=== PATIENT | female | born 1960 | race Caucasian/White ===

== ENCOUNTER 2016-11-15 18:28 | Emergency (ER) | payer BC ==
[2016-11-15 18:54] VITALS: BP 175/93
[2016-11-15] MEDS ORDERED: Lidocaine 2% 10 ML* VIAL INJ ONE (19:35)
--- NOTE | 2016-11-15 19:35 | UC ---
Laceration HPI - HPI Summary HPI Summary: 56 yo female scratched on face by boxer about 2 hours ago Td up to date mild pain no DM - History Of Current Complaint Chief Complaint: UCLaceration Stated Complaint: DOG SCRATCH ON FACE Time Seen by Provider: 11/15/16 19:28 Hx Obtained From: Patient Laceration Location: Face Mechanism Of Injury: Sharp Trauma Onset/Duration: Sudden Onset Severity: Mild Pain Intensity: 3 Pain Scale Used: 0-10 Numeric - Allergies/Home Medications Allergies/Adverse Reactions: Allergies Allergy/AdvReac Type Severity Reaction Status Date / Time Ibuprofen Allergy Severe Altered Verified 11/15/16 18:47 Mental Status Penicillins Allergy Severe Rash Verified 11/15/16 18:47 Sulfa Drugs Allergy Severe Rash Verified 11/15/16 18:47 Home Medications: Home Medications Chlorthalidone 11/15/16 [History] PMH/Surg Hx/FS Hx/Imm Hx Previously Healthy: Yes Endocrine History Of: Reports: Thyroid Disease Denies: Diabetes Cardiovascular History Of: Reports: Hypertension Denies: Cardiac Disorders Respiratory History Of: Denies: COPD, Asthma GI/ History Of: Denies: Ulcer Cancer History Of: Denies: Breast Cancer - Surgical History Surgical History: Yes Surgery Procedure, Year, and Place: tonsils; ganglion cyst; D&C - Family History Known Family History: Positive: Hypertension, Other - Prostate CA (father) - Social History Alcohol Use: None Substance Use Type: None Smoking Status (MU): Never Smoked Tobacco Review of Systems Constitutional: Negative Skin: Negative Eyes: Negative ENT: Negative Respiratory: Negative Cardiovascular: Negative Gastrointestinal: Negative Genitourinary: Negative Motor: Negative Neurovascular: Negative Musculoskeletal: Negative Neurological: Negative Psychological: Negative All Other Systems Reviewed And Are Negative: Yes Physical Exam Triage Information Reviewed: Yes Appearance: Well-Appearing, No Pain Distress, Well-Nourished Vital Signs: Initial Vital Signs Temp 99.4 F 11/15/16 18:48 Pulse 91 11/15/16 18:48 Resp 16 11/15/16 18:48 BP 175/93 11/15/16 18:48 Pulse Ox 96 11/15/16 18:48 Eyes: Positive: Conjunctiva Clear ENT: Positive: Hearing grossly normal. Negative: Nasal congestion, Nasal drainage, Trismus, Muffled/hoarse voice Neck: Positive: Supple Respiratory: Positive: Lungs clear, Normal breath sounds, No respiratory distress, No accessory muscle use Cardiovascular: Positive: RRR, No Murmur Musculoskeletal: Positive: ROM Intact, No Edema Neurological: Positive: Alert Psychological Exam: Normal Skin Exam: Other - see image Laceration Repair - Laceration Repair 1 Description: Linear Laceration Size After Repair: Length (cm) - .4, Width (mm) - 2, Depth (mm) - 2 Modified For Repair: No Type Injection: Local Anesthesia Used: 1.0% Lido Cleansing Completed Via Routine Prep: Yes Irrigation With Pressure Irrigation Device: Yes Closure Material: Sutures - 3 6-0 nylon Closure Method: Single Layer Laceration Course/Dx - Differential Dx - Laceration/Wound Provider Diagnoses: facial scratch/laceration face/upper lip Discharge - Discharge Plan Condition: Stable Disposition: HOME Prescriptions: DOXYcycline CAP(*) [DOXYcycline 100MG CAP(*)] 100 mg PO BID #6 cap Patient Education Materials: Facial Laceration (ED) Referrals: Matt Dodson MD [Primary Care Provider] - Additional Instructions: gently clean twice daily with soap and water apply a thin film of antibiotic ointment recheck for concerns of infection sutures out in 3-4 days Images Head: 1 - scratch turn to laceration at lip
[2016-11-15] MEDS ORDERED: Lidocaine 2% PF * 5 ML VIAL ONE (19:39)
== END 2016-11-15 20:15 | disposition home or self-care (01) ==
LOC: UCEAST 18:28
DX: S01.511A Laceration without foreign body of lip, initial encounter (principal); E07.9 Disorder of thyroid, unspecified; I10 Essential (primary) hypertension; S00.81XA Abrasion of other part of head, initial encounter; Z88.0 Allergy status to penicillin; Z88.2 Allergy status to sulfonamides; W54.8XXA Other contact with dog, initial encounter
CPT/HCPCS: 12013; 99212; G0463; J2001

== ENCOUNTER 2016-11-19 15:15 | Emergency (ER) | payer SELFPAY ==
--- NOTE | 2016-11-19 16:40 | UC ---
HPI Wound/Suture Re-check - HPI Summary HPI Summary: Has dog scratch to L upper lip 11/15/16. 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 Here for suture removal. - History Of Current Complaint Chief Complaint: UCSkin Stated Complaint: STITCHES REMOVAL Time Seen by Provider: 11/19/16 16:31 Hx Obtained From: Patient Onset/Duration: Sudden Onset Severity: Mild - Allergies/Home Medications Allergies/Adverse Reactions: Allergies Allergy/AdvReac Type Severity Reaction Status Date / Time Ibuprofen Allergy Severe Altered Verified 11/15/16 18:47 Mental Status Penicillins Allergy Severe Rash Verified 11/15/16 18:47 Sulfa Drugs Allergy Severe Rash Verified 11/15/16 18:47 PMH/Surg Hx/FS Hx/Imm Hx Endocrine History Of: Reports: Thyroid Disease Denies: Diabetes Cardiovascular History Of: Reports: Hypertension Denies: Cardiac Disorders Respiratory History Of: Denies: COPD, Asthma GI/ History Of: Denies: Ulcer Cancer History Of: Denies: Breast Cancer - Surgical History Surgical History: Yes Surgery Procedure, Year, and Place: tonsils; ganglion cyst; D&C - Family History Known Family History: Positive: None, Hypertension, Other - Prostate CA (father) - Social History Occupation: Employed Full-time Alcohol Use: Rare Substance Use Type: None Smoking Status (MU): Never Smoked Tobacco Review of Systems Constitutional: Negative Skin: Other - sutures to lip Eyes: Negative ENT: Negative Respiratory: Negative Cardiovascular: Negative Gastrointestinal: Negative Genitourinary: Negative Motor: Negative Neurovascular: Negative Musculoskeletal: Negative Neurological: Negative Psychological: Negative All Other Systems Reviewed And Are Negative: Yes Physical Exam Triage Information Reviewed: Yes Appearance: Well-Appearing, No Pain Distress, Well-Nourished Vital Signs: Initial Vital Signs Temp 97.8 F 11/19/16 16:32 Pulse 85 11/19/16 16:32 Resp 18 11/19/16 16:32 Pulse Ox 98 11/19/16 16:32 Vital Signs Reviewed: Yes Eye Exam: Normal Eyes: Positive: Conjunctiva Clear ENT Exam: Normal ENT: Positive: Normal ENT inspection, Hearing grossly normal, Pharynx normal, TMs normal Dental Exam: Normal Neck exam: Normal Neck: Positive: Supple, Nontender Respiratory Exam: Normal Respiratory: Positive: Chest non-tender, Lungs clear, Normal breath sounds, No respiratory distress, No accessory muscle use Cardiovascular Exam: Normal Cardiovascular: Positive: RRR, No Murmur Musculoskeletal Exam: Normal Neurological Exam: Normal Neurological: Positive: Alert Psychological Exam: Normal Skin Exam: Other - #3 sutures removed from L upper lip. Wound scabbed and well- approximated. Pt adilson well. Course/Dx - Differential Dx - Laceration/Wound Provider Diagnoses: Suture removal from face Discharge - Discharge Plan Condition: Stable Disposition: HOME Patient Education Materials: Stitches Removal (ED) Referrals: Matt Dodson MD [Primary Care Provider] - If Needed Additional Instructions: call or return if you have increasing swelling, redness, or drainage
[2016-11-19 16:41] VITALS: BP 166/80
== END 2016-11-19 16:35 | disposition home or self-care (01) ==
LOC: UCEAST 15:15
DX: S01.511D Laceration without foreign body of lip, subsequent encounter (principal); W54.8XXD Other contact with dog, subsequent encounter; Y92.89 Other specified places as the place of occurrence of the external cause; Y99.0 Civilian activity done for income or pay; E07.9 Disorder of thyroid, unspecified; I10 Essential (primary) hypertension; Z88.6 Allergy status to analgesic agent; Z88.0 Allergy status to penicillin; Z88.2 Allergy status to sulfonamides
CPT/HCPCS: 99211; G0463

== ENCOUNTER 2018-02-27 20:24 | Emergency (ER) | payer SELFPAY ==
[2018-02-27 20:45] VITALS: BP 169/84
[2018-02-27] MEDS ORDERED: Doxycycline (NF) 100 MG TAB PO ONE (21:46)
[2018-02-27] MEDS ORDERED: Clindamycin CAP* 150 MG PO ONE (21:47)
--- NOTE | 2018-02-27 21:47 | UC ---
Bite Injury/Animal HPI - HPI Summary HPI Summary: This patient is a 57 year old F presenting [place] [facility] [place] cat bite of the right index finger that occurred at her job today at 1815. She was wearing cat gloves so the bite is very minor. The patient rates the pain 2/10 in severity. Patient states that she rinsed it well. Pt states her tetanus is UTD and that the cat has all its shots. She is concerned for infections. . 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 Severity Currently: Mild Severity Initially: Mild Pain Intensity: 2 Pain Scale Used: 0-10 Numeric Onset/Duration: Sudden Onset, Still Present Type of Bite: Animal Has Animal Been Immunized?: Yes Character: Puncture Associated Signs And Symptoms: Negative: Fever, Swelling - Allergies/Home Medications Allergies/Adverse Reactions: Allergies Allergy/AdvReac Type Severity Reaction Status Date / Time MS Ibuprofen [Ibuprofen] Allergy Severe Altered Verified 11/19/16 16:40 Mental Status MS Penicillins [Penicillins] Allergy Severe Rash Verified 11/19/16 16:40 MS Sulfa Drugs [Sulfa Drugs] Allergy Severe Rash Verified 11/19/16 16:40 PMH/Surg Hx/FS Hx/Imm Hx Endocrine History: Thyroid Disease Cardiovascular History: Hypertension Other History Of: Negative For: Anticoagulant Therapy - Surgical History Surgical History: Yes Surgery Procedure, Year, and Place: tonsils; ganglion cyst; D&C - Family History Known Family History: Positive: Hypertension, Other - Prostate CA (father) Negative: Cardiac Disease, Renal Disease, Respiratory Disease, Seizure Disorder - Social History Occupation: Employed Full-time Alcohol Use: Rare Substance Use Type: None Smoking Status (MU): Never Smoked Tobacco - Immunization History Most Recent Tetanus Shot: 830724 Review of Systems Constitutional: Negative - fever Skin: Other - cat bite to the right index finger All Other Systems Reviewed And Are Negative: Yes Physical Exam Triage Information Reviewed: Yes Appearance: Well-Appearing, No Pain Distress Vital Signs: Initial Vital Signs Temp 98.4 F 02/27/18 20:39 Pulse 87 02/27/18 20:39 Resp 16 02/27/18 20:39 BP 169/84 02/27/18 20:39 Pulse Ox 98 02/27/18 20:39 Vital Signs Reviewed: Yes Eye Exam: Normal ENT Exam: Normal Respiratory: Positive: Lungs clear, Normal breath sounds Cardiovascular: Positive: RRR, No Murmur Abdomen Description: Negative: Distended Musculoskeletal: Positive: Strength Intact, ROM Intact, No Edema, Other: - right index finger with small punture wound on tip. No finger swelling or redness no tenderness on Flexion or extension of the finger. Psychological: Positive: Age Appropriate Behavior Skin: Positive: Other - puncture wound right index finger tip Bite Injury Course/Dx - Course Course Of Treatment: 57 yr old with cat bite superficial to finger tip. Cat shots up to date. She got TDAP a year ago. DC home. - Differential Dx/Diagnosis Provider Diagnoses: cat bite right indexfinger. hypertension Discharge - Sign-Out/Discharge Documenting (check all that apply): Patient Departure All imaging exams completed and their final reports reviewed: No Studies - Discharge Plan Condition: Good Disposition: HOME Prescriptions: Clindamycin Cap(NF) [Clindamycin Cap 300 mg Cap(NF)] 300 mg PO TID #14 cap DOXYcycline CAP(*) [DOXYcycline 100MG CAP(*)] 100 mg PO BID #10 cap Patient Education Materials: Animal Bite (ED), Hypertension (ED) Referrals: Matt Dodson MD [Primary Care Provider] - 2 Days - Billing Disposition and Condition Condition: GOOD Disposition: Home - Attestation Statements Document Initiated by Misty: Yes Documenting Scribe: Vamshi Moon Provider For Whom Misty is Documenting (Include Credential): Arie Cast MD Scribe Attestation: Vamshi Galloway scribed for Arie Cast MD on 02/27/18 at 2150. Scribe Documentation Reviewed: Yes Provider Attestation: The documentation as recorded by the Vamshi remy accurately reflects the service I personally performed and the decisions made by me, Arie Cast MD
[2018-02-27] MEDS ORDERED: DOXYcycline CAP(*) 100 MG PO ONE (21:54)
== END 2018-02-27 22:00 | disposition home or self-care (01) ==
LOC: UCEAST 20:24
DX: S61.250A Open bite of right index finger without damage to nail, initial encounter (principal); I10 Essential (primary) hypertension; Z88.0 Allergy status to penicillin; Z88.2 Allergy status to sulfonamides; Z88.6 Allergy status to analgesic agent; W55.01XA Bitten by cat, initial encounter; Y92.89 Other specified places as the place of occurrence of the external cause; Y99.0 Civilian activity done for income or pay
CPT/HCPCS: 99213; A9270-GY; G0463

== ENCOUNTER 2018-04-14 12:29 | Emergency (ER) | payer BC ==
[2018-04-14 12:42] VITALS: BP 193/86
--- NOTE | 2018-04-14 13:45 | UC ---
UC General HPI - HPI Summary HPI Summary: 57-year-old woman comes in today with a complaint of feeling shaky. The shaky started today. 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 No recent change in her levothyroxine dosing. No fevers or chills no chest pain no shortness of breath. She is perimenopausal and has been having increasing frequency of hot flashes recently. She questions the possibility of Lyme disease she has not seen a tick on her for several years. No rashes. She is on a diuretic and knows that that can affect your potassium levels. 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 Pain Intensity: 4 - Allergy/Home Medications Allergies/Adverse Reactions: Allergies Allergy/AdvReac Type Severity Reaction Status Date / Time ibuprofen Allergy Intermediate altered Verified 04/14/18 12:43 mental status Penicillins Allergy Intermediate Rash Verified 04/14/18 12:43 Sulfa (Sulfonamide Allergy Intermediate Rash Verified 04/14/18 12:43 Antibiotics) PMH/Surg Hx/FS Hx/Imm Hx Endocrine History: Thyroid Disease Other History Of: Negative For: Anticoagulant Therapy - Surgical History Surgical History: Yes Surgery Procedure, Year, and Place: tonsils; ganglion cyst; D&C - Family History Known Family History: Positive: Hypertension, Other - Prostate CA (father) Negative: Cardiac Disease, Renal Disease, Respiratory Disease, Seizure Disorder - Social History Alcohol Use: Occasionally Substance Use Type: None Smoking Status (MU): Never Smoked Tobacco - Immunization History Most Recent Tetanus Shot: 340555 Review of Systems Constitutional: Other - SHAKY, SEE HPI Skin: Negative Eyes: Negative ENT: Negative Respiratory: Negative Cardiovascular: Negative Gastrointestinal: Negative Genitourinary: Negative Motor: Negative Neurovascular: Negative Musculoskeletal: Negative Neurological: Negative Psychological: Negative Is Patient Immunocompromised?: No All Other Systems Reviewed And Are Negative: Yes Physical Exam Triage Information Reviewed: Yes Appearance: Well-Appearing, No Pain Distress, Well-Nourished Vital Signs: Initial Vital Signs Temp 99.4 F 04/14/18 12:35 Pulse 77 04/14/18 12:35 Resp 20 04/14/18 12:35 BP 193/86 04/14/18 12:35 Pulse Ox 98 04/14/18 12:35 Vital Signs Reviewed: Yes Eye Exam: Normal Neck exam: Normal Neck: Positive: Supple Respiratory Exam: Normal Respiratory: Positive: Lungs clear, Normal breath sounds, No respiratory distress Cardiovascular Exam: Normal Cardiovascular: Positive: RRR Musculoskeletal Exam: Normal Musculoskeletal: Positive: Strength Intact, ROM Intact, No Edema Neurological Exam: Normal Neurological: Positive: Alert, Muscle Tone Normal Psychological Exam: Normal Psychological: Positive: Age Appropriate Behavior Skin Exam: Normal Diagnostics - EKG EKG Comments: AT 13:48 Cardiac Rhythm: Sinus: Normal - 68 BPM Ectopy: None ST Segment: Normal - NO PEAKED T WAVES Course/Dx - Course Course Of Treatment: No peaked T waves on the EKG. The plan is to check for inflammation with a CRP. We'll check for electrolytes due to being on the diuretic. We'll check a TSH to the history of thyroid problems. Patient would also like a Lyme screen. Plan is to follow-up with her primary care doctor. If she gets worse she needs to be seen right away she should go to the emergency department. - Differential Dx - Multi-Symptom Provider Diagnoses: SHAKY. ARTHRALGIAS. MYALGIAS Discharge - Sign-Out/Discharge Documenting (check all that apply): Patient Departure All imaging exams completed and their final reports reviewed: No Studies - Discharge Plan Condition: Stable Disposition: HOME Patient Education Materials: Musculoskeletal Pain (ED) Referrals: Matt Dodson MD [Primary Care Provider] - Additional Instructions: FOLLOW UP WITH YOUR DOCTOR. GET RECHECKED FOR ANY WORSENING OF YOUR CONDITION OR QUESTIONS OR CONCERNS. - Billing Disposition and Condition Condition: STABLE Disposition: Home
[2018-04-14 18:45] LABS: ABS Basophils 0.1 10^3/ul (0-0.2); ABS Eosinophils 0.2 10^3/ul (0-0.6); ABS Monocytes 0.5 10^3/ul (0-0.8); ABS Nucleated RBC 0 10^3/ul; Eosinophil % 4.1 % (0-6); Hematocrit 42 % (35-47); Lymphocyte % 34.8 % (25-47); Mean Corpuscular HGB Conc 33 g/dl (31-36); Mean Corpuscular Hemoglobin 29 pg (27-31); Mean Corpuscular Volume 87 fL (80-97); Mean Platelet Volume 8.3 um3 (7.4-10.4); Nucleated Red Blood Cells % 0.1; Platelet Count 314 10^3/ul (150-450); Red Blood Count 4.79 10^6/ul (4.00-5.40); Red Cell Distribution Width 14 % (10.5-15); White Blood Count 5.9 10^3/ul (3.5-10.8)
== END 2018-04-14 14:15 | disposition home or self-care (01) ==
LOC: UCEAST 12:29
DX: R25.9 Unspecified abnormal involuntary movements (principal); M25.50 Pain in unspecified joint; M79.10 Myalgia, unspecified site; Z88.0 Allergy status to penicillin; Z88.1 Allergy status to other antibiotic agents; Z88.6 Allergy status to analgesic agent
CPT/HCPCS: 36415; 80053; 84443; 85025; 86140; 86618; 93005; 99211; G0463

== ENCOUNTER 2018-12-10 15:36 | Emergency (ER) | payer BC ==
[2018-12-10 15:58] VITALS: BP 151/81
--- NOTE | 2018-12-10 16:44 | UC ---
Lower Extremity/Ankle HPI - HPI Summary HPI Summary: 58 yo female with left foot pain x >2 mos states she is on her feet all day initially heel pain now also has forefoot pain HX "reactive arthritis" heel pain worse in AM - History of Current Complaint Chief Complaint: UCLowerExtremity Stated Complaint: foot PAIN Hx Obtained From: Patient Hx Last Menstrual Period: 2 years Onset/Duration: Gradual Onset, Lasting Weeks Severity Initially: Moderate Severity Currently: Moderate Pain Intensity: 6 Pain Scale Used: Adult Non Verbal Aggravating Factor(s): Standing, Ambulation Alleviating Factor(s): Rest Able to Bear Weight: Yes Feet (Multiple View): 1 - tender 2 - tender - Allergies/Home Medications Allergies/Adverse Reactions: Allergies Allergy/AdvReac Type Severity Reaction Status Date / Time garlic Allergy Severe Palpitation Verified 12/10/18 16:06 s ibuprofen Allergy Intermediate altered Verified 12/10/18 15:58 mental status peanut Allergy Intermediate GI Upset Verified 12/10/18 16:06 Penicillins Allergy Intermediate Rash Verified 12/10/18 15:58 soy Allergy Intermediate confusion Verified 12/10/18 16:06 Sulfa (Sulfonamide Allergy Intermediate Rash Verified 12/10/18 15:58 Antibiotics) sunflower oil Allergy Intermediate Palpitation Verified 12/10/18 16:06 s PMH/Surg Hx/FS Hx/Imm Hx Previously Healthy: Yes Cardiovascular History: Hypertension Other History Of: Negative For: Anticoagulant Therapy - Surgical History Surgical History: Yes Surgery Procedure, Year, and Place: tonsils; ganglion cyst; D&C - Family History Known Family History: Positive: Hypertension, Other - Prostate CA (father) Negative: Cardiac Disease, Renal Disease, Respiratory Disease, Seizure Disorder - Social History Alcohol Use: Occasionally Substance Use Type: None Smoking Status (MU): Never Smoked Tobacco - Immunization History Most Recent Tetanus Shot: [id number] Review of Systems All Other Systems Reviewed And Are Negative: Yes Constitutional: Positive: Negative Skin: Positive: Negative Eyes: Positive: Negative ENT: Positive: Negative Respiratory: Positive: Negative Cardiovascular: Positive: Negative Gastrointestinal: Positive: Negative Genitourinary: Positive: Negative Motor: Positive: Negative Neurovascular: Positive: Negative Musculoskeletal: Positive: Arthralgia Neurological: Positive: Negative Psychological: Positive: Negative Physical Exam Triage Information Reviewed: Yes Appearance: Well-Appearing, No Pain Distress, Well-Nourished Vital Signs: Initial Vital Signs Temp 99.5 F 12/10/18 15:50 Pulse 88 12/10/18 15:50 Resp 16 12/10/18 15:50 BP 151/81 12/10/18 15:50 Pulse Ox 99 12/10/18 15:50 Vital Signs Reviewed: Yes Eyes: Positive: Conjunctiva Clear ENT: Positive: Hearing grossly normal. Negative: Nasal congestion, Nasal drainage, Trismus, Muffled voice, Hoarse voice Neck: Positive: Supple Respiratory: Positive: Lungs clear, Normal breath sounds, No respiratory distress, No accessory muscle use Cardiovascular: Positive: RRR Musculoskeletal: Positive: ROM Intact, No Edema, Other: - see image Neurological: Positive: Alert Psychological Exam: Normal Skin Exam: Normal Diagnostics - Radiology No standard instances Radiology Interpretation Completed By: Radiologist Summary of Radiographic Findings: #. Negative for fracture, stress reaction, or articular malalignment. Os peroneum. accessory ossicle. #. Moderately large plantar fascia origin bone spur with interval worsening and. associated heel fat pad soft tissue swelling concerning for plantar fasciitis. #. Polyarticular mild osteoarthritis. Lower Extremity Course/Dx - Differential Dx/Diagnosis Provider Diagnosis: Plantar fasciitis, left, Metatarsalgia, left foot Discharge - Sign-Out/Discharge Documenting (check all that apply): Patient Departure All imaging exams completed and their final reports reviewed: Yes - Discharge Plan Condition: Stable Disposition: HOME Patient Education Materials: Plantar Fasciitis (ED), Plantar Fasciitis Exercises (GEN) Referrals: Matt Dodson MD [Primary Care Provider] - Additional Instructions: post op shoe I suggest you see a hearing impaired teacher - Billing Disposition and Condition Condition: STABLE Disposition: Home
== END 2018-12-10 17:50 | disposition home or self-care (01) ==
LOC: UCEAST 15:36
DX: M72.2 Plantar fascial fibromatosis (principal); M77.42 Metatarsalgia, left foot; I10 Essential (primary) hypertension
CPT/HCPCS: 99211; G0463